=== PATIENT | female | born 1955 | race Caucasian/White ===

== ENCOUNTER → 2021-02-22 | Outpatient (CLI) | payer MEDICARE | LOC: M.ULTRA 13:00 | PROVIDERS: ATTEND Nurse Practitioner Family | DX: M79.89 Other specified soft tissue disorders (principal) ==

== ENCOUNTER → 2021-03-18 | Outpatient (CLI) | payer MEDICARE ==
[~2021-03-18] MED LIST: AMITRIPTYLINE H10 M1 PO; LYRICA 50 MG50 MG PO
== END ==
LOC: M.PC 11:46
PROVIDERS: ATTEND Anesthesiology Pain Medicine
DX: M54.5 Low back pain (principal); M19.90 Unspecified osteoarthritis, unspecified site; E78.5 Hyperlipidemia, unspecified; H40.9 Unspecified glaucoma; E78.2 Mixed hyperlipidemia; J43.1 Panlobular emphysema; F32.9 Major depressive disorder, single episode, unspecified